=== PATIENT | female | born 1980 | race Caucasian/White ===

== ENCOUNTER 2016-09-08 20:25 | Emergency (ER) | payer SELFPAY ==
[~2016-09-08] VITALS: Ht 165.1 cm; Wt 125.5 kg
[2016-09-08 21:14] VITALS: Ht 165.1 cm; Wt 125.5 kg
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
[2016-09-08] MEDS ORDERED: IBUPROFEN 600 MG TAB PO ONE (22:30)
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
[2016-09-08] MEDS ORDERED: CYCL-319 PO (23:44)
[2016-09-08] MEDS ORDERED: IBUP-1542 PO (23:44)
[2016-09-09 00:20] VITALS: BP 145/79; PULSE 68; RESP 20; TEMP 98
== END 2016-09-09 00:21 | disposition home or self-care (01) ==
LOC: FTE 20:25
DX: S39.012A Strain of muscle, fascia and tendon of lower back, initial encounter (principal); V49.40XA Driver injured in collision with unspecified motor vehicles in traffic accident, initial encounter
CPT/HCPCS: 72040; 74176